=== PATIENT | female | born 1980 ===

== ENCOUNTER → 2023-10-31 09:16 | Outpatient (REF) | payer OTHER, SELFPAY | LOC: WDC 09:16 | PROVIDERS: ATTENDING PHYSICIAN Physician Assistant Medical | DX: R92.8 Other abnormal and inconclusive findings on diagnostic imaging of breast (principal) | CPT/HCPCS: 76642 ==

== ENCOUNTER → 2025-07-18 09:45 | Outpatient (REF) | payer OTHER, SELFPAY | LOC: WDC 09:45 | PROVIDERS: ATTENDING PHYSICIAN Physician Assistant Medical | DX: N63.42 Unspecified lump in left breast, subareolar (principal); N64.4 Mastodynia | CPT/HCPCS: 76642; 77062; 77066 ==